=== PATIENT | female | born 2000 | race Caucasian/White ===

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

== ENCOUNTER → 2021-12-13 | Outpatient (CLI) | payer MEDICAID ==
[~2021-12-13] MED LIST changes: +CATHETER FLUSH 10 ML SYR IV PRN; -CETI10TA20 PO; +CETI10TA49 PO; -SULF1TAB35 PO; +SULF1TAB38 PO; +birth control
--- NOTE | 2021-12-13 15:04 | Diagnostic Imaging Report ---
INDICATION: Epigastric pain. TECHNIQUE: The patient was administered 5.2 mCi of technetium 99m Choletec intravenously and imaging over the abdomen was performed. At 60 minutes, the patient ingested 8 ounces of Ensure and the gallbladder ejection fraction was calculated. FINDINGS: There is homogeneous uptake of activity by the liver. Prompt excretion of activity into the gallbladder and common duct is noted. There is normal passage of activity into the small bowel. The gallbladder ejection fraction is normal at 77%. IMPRESSION: Normal HIDA scan and gallbladder ejection fraction. Dictated by: Dictated on workstation # [id number]
== END ==
LOC: CARD 12:45
PROVIDERS: ATTEND Nurse Practitioner Family
DX: R10.13 Epigastric pain (principal)
CPT/HCPCS: 78227